=== PATIENT | male | born 1955 | race African-American/Black ===

== ENCOUNTER 2017-09-27 11:58 | Emergency (ER) | payer OTHER, MEDICAID ==
[~2017-09-27] VITALS: Ht 185.4 cm; Wt 93.4 kg
[2017-09-27 12:19] VITALS: BP 154/109
[2017-09-27] MEDS ORDERED: TESSALON PERLE100 MG ORAL (12:40)
--- NOTE | 2017-09-27 12:41 | Emergency Room Report ---
History of Present Illness General Chief Complaint: Upper Respiratory Illness Source: Patient Present Illness HPI 62-year-old male with pmhx pretension, diabetes, HIV positive on treatment, last CD4 count was normal with undetectable viral load for many years, p/w cough for 3 weeks. Pt states cough is productive, with clear non bloody sputum. Denies fever chills sob or chest pain. +runny nose no myalgias. Patient states at work there is some unwitnessed similar cough as well. no recent travel. Patient does not smoke. Allergies: Coded Allergies: SULFA (SULFONAMIDE ANTIBIOTICS) (Verified Allergy, Unknown, 09/27/17) Patient History Past Medical History: see triage record Past Surgical History: none Pertinent Family History: none Reviewed Nursing Documentation: PMH: Agreed, PSxH: Agreed Nursing Documentation-PMH Past Medical History: No History, Except For Hx Hypertension: Yes Review of Systems All Other Systems: negative except mentioned in HPI Physical Exam Vital Signs Date Time Temp Pulse Resp B/P (MAP) Pulse Ox O2 Delivery O2 Flow Rate FiO2 09/27/17 12:19 98.6 92 18 154/109 100 Room Air Sp02 EP Interpretation: reviewed, normal General Appearance: normal inspection, well appearing, no apparent distress, alert, GCS 15, non-toxic Head: normocephalic, atraumatic Eyes: bilateral eye normal inspection, bilateral eye PERRL, bilateral eye EOMI ENT: normal ENT inspection, normal pharynx, normal voice, moist mucus membranes Neck: normal inspection, full range of motion, supple Respiratory: normal inspection, lungs clear, normal breath sounds, no respiratory distress, no retraction, no wheezing, speaking full sentences, chest symmetrical Cardiovascular #1: normal inspection, regular rate, rhythm, no edema, normal capillary refill Cardiovascular #2: 2+ radial (R), 2+ radial (L) Gastrointestinal: normal inspection, non tender, soft, non-distended, no guarding Genitourinary: no CVA tenderness Musculoskeletal: normal inspection, back normal, normal range of motion, non- tender Neurologic: normal inspection, alert, oriented x3, responsive, motor strength/ tone normal, sensory intact, normal gait, speech normal Psychiatric: normal inspection, judgement/insight normal, memory normal Skin: normal inspection, normal color, no rash, warm/dry, well hydrated, normal turgor Medical Decision Making Diagnostic Impression: Primary Impression: Bronchitis ER Course 62-year-old male with cough for 3 weeks DDX: Acute bronchitis versus viral URI versus pneumonia Plan: CXR ER course: Patient remains nontoxic, not in resp distress. CXR obtained - no acute infiltrate Disposition: Patient is to be discharged home with a prescription of Tessalon Perles Strict precautions discussed with patient on when to return to the emergency room including hemoptysis, high fevers, chills, SOB, chest pain which may indicate severe illness. Patient is to follow up with their primary care doctor within 5 days. Patient agrees with plan. Please note that this Emergency Department Report was dictated using [employer] cleaner technology software, occasionally this can lead to erroneous entry secondary to interpretation by the dictation equipment Chest X-ray CXR: Ordered: Yes 1 view Indication: Cough EP interpretation: Yes Interpretation: No consolidation, no effusion, no PTX, no acute cardiopulmonary disease Impression: No acute disease Electronically signed by Isabell Sandoval MD Last Vital Signs Date Time Temp Pulse Resp B/P (MAP) Pulse Ox O2 Delivery O2 Flow Rate FiO2 09/27/17 12:19 98.6 92 18 154/109 100 Room Air Disposition: HOME, SELF-CARE Condition: Stable Scripts Benzonatate* (TESSALON PERLE*) 100 Mg Capsule 100 MG ORAL THREE TIMES A DAY for 7 Days, #21 PERLE 0 Refills Prov: Isabell Sandoval M.D. 09/27/17 Patient Instructions: Acute Bronchitis, [id number] Isabell Sandoval M.D. Sep 27, 2017 12:41
[2017-09-27 12:50] VITALS: BP 135/98
--- NOTE | 2017-09-27 16:27 | Diagnostic Imaging Report ---
Indication: COUGH Technique: One view of the chest Comparison: none Findings: No acute infiltrates, effusions, or congestion. Tortuous calcified aorta. Normal heart size. Upper mediastinum unremarkable. Impression: No acute process.
== END 2017-09-27 14:52 | disposition home or self-care (01) ==
LOC: EMR 12:50
DX: J40 Bronchitis, not specified as acute or chronic (principal); I10 Essential (primary) hypertension; Z88.2 Allergy status to sulfonamides
CPT/HCPCS: 71010; 99283

== ENCOUNTER 2018-04-02 17:27 | Emergency (ER) | payer MEDICAID, OTHER ==
[~2018-04-02] VITALS: Ht 185.4 cm; Wt 99.8 kg
[~2018-04-02 17:27] MED LIST: TESSALON PERLE100 MG ORAL
--- NOTE | 2018-04-02 18:12 | Emergency Room Report ---
History of Present Illness General Chief Complaint: Upper Respiratory Illness Present Illness HPI 62-year-old male presents to the emergency department complaining of dry persistent cough, 7 out of 10 in severity generalized bodyaches, sore throat, nasal congestion 3 days. Patient reports many of his coworkers have been experiencing similar symptoms. Patient reports low-grade fevers at home. He also states that he has phlegm in his throat that he is unable to clear. He denies history of smoking, asthma/COPD. He states that he is otherwise healthy with no significant past medical history. He denies neck pain or stiffness, reports mild dull progressive headache. Denies nausea, vomiting, dizziness, chest pain, dyspnea. Denies swelling of the lower extremities. Allergies: Coded Allergies: SULFA (SULFONAMIDE ANTIBIOTICS) (Verified Allergy, Unknown, 09/27/17) Patient History Past Medical History: see triage record Past Surgical History: none Pertinent Family History: none Reviewed Nursing Documentation: PMH: Agreed; PSxH: Agreed Nursing Documentation-PMH Hx Hypertension: Yes Review of Systems All Other Systems: negative except mentioned in HPI Physical Exam Vital Signs Date Time Temp Pulse Resp B/P (MAP) Pulse Ox O2 Delivery O2 Flow Rate FiO2 04/02/18 17:39 100.0 85 20 141/84 97 Room Air 100.0 Sp02 EP Interpretation: reviewed, normal General Appearance: no apparent distress, alert, GCS 15, non-toxic Head: normocephalic, atraumatic Eyes: bilateral eye normal inspection, bilateral eye PERRL ENT: hearing grossly normal, normal voice, TMs + canals normal, uvula midline, nasal congestion, other - no exudates Neck: full range of motion, no meningismus Respiratory: lungs clear, normal breath sounds, no rhonchi, no accessory muscle use, no wheezing, speaking full sentences Cardiovascular #1: regular rate, rhythm, no edema, normal capillary refill Musculoskeletal: back normal, gait/station normal, normal range of motion, non- tender Neurologic: alert, oriented x3, responsive, motor strength/tone normal, sensory intact, normal gait, speech normal, grossly normal Psychiatric: judgement/insight normal Skin: normal color, no rash, warm/dry, well hydrated Medical Decision Making PA Attestation Dr. fenton is my supervising Physician whom patient management has been discussed with. Diagnostic Impression: Primary Impression: Bronchitis Additional Impression: Viral upper respiratory tract infection with cough ER Course 62-year-old male presents to the emergency department complaining of dry persistent cough, 7 out of 10 in severity generalized bodyaches, sore throat, nasal congestion 3 days. Patient reports many of his coworkers have been experiencing similar symptoms. Patient reports low-grade fevers at home. He also states that he has phlegm in his throat that he is unable to clear. He denies history of smoking, asthma/COPD. He states that he is otherwise healthy with no significant past medical history. He denies neck pain or stiffness, reports mild dull progressive headache. Denies nausea, vomiting, dizziness, chest pain, dyspnea. Denies swelling of the lower extremities. Ddx considered but are not limited to URI, pneumonia, PE, strep pharyngitis, meningitis. Vital signs: Pt.is afebrile VS are WNL H&PE are most consistent with bronchitis ORDERS: none required at this time, the diagnosis is clinical ED INTERVENTIONS: PROMETHAZINE COUGH SYRUP PO & NAPROXEN DISCHARGE: At this time pt. is stable for d/c to home. Will provide printed patient care instructions, and any necessary prescriptions. Care plan and follow up instructions have been discussed with the patient prior to discharge. Last Vital Signs Date Time Temp Pulse Resp B/P (MAP) Pulse Ox O2 Delivery O2 Flow Rate FiO2 04/02/18 18:02 85 20 Room Air 04/02/18 17:39 100.0 141/84 97 100.0 Disposition: HOME, SELF-CARE Condition: Stable Scripts Naproxen* (NAPROXEN*) 375 Mg Tablet.dr 375 MG ORAL TWICE A DAY for 4 Days, #8 TAB Prov: Maryann Irizarry P.A. 04/02/18 Guaifenesin (Guaifenesin) 1,200 Mg Tab.er.12h 1200 MG PO Q12HR, #20 TAB Prov: Maryann Irizarry P.A. 04/02/18 Benzonatate* (TESSALON PERLE*) 100 Mg Capsule 100 MG ORAL THREE TIMES A DAY, #20 PERLE Prov: Maryann Irizarry P.A. 04/02/18 Codeine/Promethazine Hcl* (PROMETHAZINE-CODEINE SYRUP*) 118 Ml Syrup 5 ML ORAL Q6H PRN for For Cough, #120 ML 0 Refills Prov: Maryann Irizarry 04/02/18 Referrals: NON PHYSICIAN (PCP) Additional Instructions: Take medications as directed. Follow up with a Primary Care Provider in 3-5 days, even if your symptoms have resolved. --Please review list of primary care clinics, if you do not already have a primary care provider Return sooner to ED if new symptoms occur, or current symptoms become worse. Do not drink alcohol, drive, or operate heavy machinery while taking Cough Syrup as this may cause drowsiness. - Please note that this Emergency Department Report was dictated using [employer] technology software, occasionally this can lead to erroneous entry secondary to interpretation by the dictation equipment. Maryann Irizarry Apr 02, 2018 18:12
[2018-04-02] MEDS ORDERED: NAPROXEN375 M2 ORAL (18:23)
[2018-04-02] MEDS ORDERED: TESSALON PERLE100 MG ORAL (18:23)
[2018-04-02] MEDS ORDERED: PROMETHAZINE-C118 M1 ORAL (18:23)
[2018-04-02] MEDS ORDERED: GUAIFENESIN1200 MG PO (18:23)
[2018-04-02 18:34] VITALS: BP 141/84
[2018-04-02] MEDS ORDERED: Promethazine Plain 6.25mg/5ml ORAL ONE (18:45)
[2018-04-02] MEDS ORDERED: Naproxen 500mg tab ORAL ONE (18:45)
== END 2018-04-02 19:01 | disposition home or self-care (01) ==
LOC: EMR 18:03
DX: J40 Bronchitis, not specified as acute or chronic (principal); J06.9 Acute upper respiratory infection, unspecified; B34.9 Viral infection, unspecified; I10 Essential (primary) hypertension; Z88.2 Allergy status to sulfonamides
CPT/HCPCS: 99284

== ENCOUNTER 2018-07-19 12:31 | Emergency (ER) | payer OTHER ==
[~2018-07-19] VITALS: Ht 188 cm; Wt 113.4 kg
[~2018-07-19 12:31] MED LIST changes: +GUAIFENESIN1200 MG PO; +NAPROXEN375 M2 ORAL; +PROMETHAZINE-C118 M1 ORAL
[2018-07-19] MEDS ORDERED: TIVICAY50 MG ORAL (12:42)
[2018-07-19] MEDS ORDERED: Ketorolac 60mg Inj IM ONE (13:15)
--- NOTE | 2018-07-19 14:22 | Emergency Room Report ---
History of Present Illness General Chief Complaint: Upper Respiratory Illness Source: Patient, Medical Record Present Illness HPI This patient states that he just returned from a trip to [facility]. He states that over the past 2 days he has had cough and sore throat that has been worsening. He does have a history of HIV. However, he states that he is undetectable and well controlled and on antiretroviral therapy. He denies fever or chills. He denies nausea or vomiting. He has no other complaints. Allergies: Coded Allergies: SULFA (SULFONAMIDE ANTIBIOTICS) (Verified Allergy, Unknown, 09/27/17) Patient History Past Medical History: see triage record, HIV Social History: Reports: alcohol use; Denies: smoking, drug use Reviewed Nursing Documentation: PMH: Agreed; PSxH: Agreed Nursing Documentation-PMH Past Medical History: No History, Except For Hx Hypertension: Yes Review of Systems All Other Systems: negative except mentioned in HPI Physical Exam Vital Signs Date Time Temp Pulse Resp B/P (MAP) Pulse Ox O2 Delivery O2 Flow Rate FiO2 07/19/18 12:39 98.9 81 18 151/96 97 Room Air 99.0 Sp02 EP Interpretation: reviewed, normal General Appearance: no apparent distress, alert, GCS 15, non-toxic Head: normocephalic, atraumatic Eyes: bilateral eye normal inspection, bilateral eye PERRL ENT: hearing grossly normal, normal pharynx, no angioedema, normal voice Neck: full range of motion, supple/symm/no masses Respiratory: chest non-tender, lungs clear, normal breath sounds, no respiratory distress, no retraction, no accessory muscle use, speaking full sentences Cardiovascular #1: regular rate, rhythm, no edema Gastrointestinal: normal bowel sounds, non tender, soft, non-distended, no guarding, no rebound Rectal: deferred Musculoskeletal: back normal, gait/station normal, normal range of motion, non- tender Neurologic: alert, oriented x3, responsive, motor strength/tone normal, sensory intact, speech normal Psychiatric: judgement/insight normal, memory normal, mood/affect normal, no suicidal/homicidal ideation Skin: normal color, no rash, warm/dry, well hydrated Medical Decision Making Diagnostic Impression: Primary Impression: Upper respiratory infection ER Course This patient has a clinical presentation with upper respiratory tract infection. The evaluation was very reassuring with a normal lung exam, no respiratory distress, normal pulse oximetry. The patient does have a history of HIV and states that he usually needs antibiotics. Given that he is technically immunocompromise, I will go ahead and treat him with a course of antibiotics. No emergency medical condition was identified. Patient is given close return precautions and follow-up instructions. Chest X-Ray Diagnostic Results Chest X-Ray Diagnostic Results : Chest X-Ray Ordered: Yes # of Views/Limited/Complete: 1 View Indication: Other - cough EP Interpretation: Yes Interpretation: no consolidation, no effusion, no pneumothorax, no acute cardiopulmonary disease Impression: No acute disease Electronically Signed by: Negrita Last Vital Signs Date Time Temp Pulse Resp B/P (MAP) Pulse Ox O2 Delivery O2 Flow Rate FiO2 07/19/18 12:39 98.9 81 18 151/96 97 Room Air 99.0 Status: improved Disposition: HOME, SELF-CARE Condition: Improved Referrals: NON PHYSICIAN (PCP) Patient Instructions: Upper Respiratory Infection, Adult Aliyah Treadwell DO Jul 19, 2018 14:22
[2018-07-19] MEDS ORDERED: GUAIFENESIN-CO118 M1 ORAL (14:24)
[2018-07-19] MEDS ORDERED: ZITHROMAX250 MG ORAL (14:24)
[2018-07-19 14:48] VITALS: BP 151/96
[2018-07-19 14:50] VITALS: BP 151/96
--- NOTE | 2018-07-19 17:56 | Diagnostic Imaging Report ---
Indication: Cough Technique: One view of the chest Comparison: 09/27/2017 Findings: Lungs and pleural spaces are clear. Heart size is normal . No significant change Impression: No acute process
== END 2018-07-19 14:53 | disposition home or self-care (01) ==
LOC: EMR 13:17
DX: J06.9 Acute upper respiratory infection, unspecified (principal); J02.9 Acute pharyngitis, unspecified; I10 Essential (primary) hypertension; Z21 Asymptomatic human immunodeficiency virus [HIV] infection status; Z88.2 Allergy status to sulfonamides
CPT/HCPCS: 71045; 96372; 99283

== ENCOUNTER 2019-12-10 09:21 | Emergency (ER) | payer OTHER ==
[~2019-12-10] VITALS: Ht 185.4 cm; Wt 97.5 kg
[~2019-12-10 09:21] MED LIST changes: +GUAIFENESIN-CO118 M1 ORAL; +TIVICAY50 MG ORAL; +ZITHROMAX250 MG ORAL
[2019-12-10 09:33] VITALS: BP 146/95
[2019-12-10] MEDS ORDERED: METFORMIN HCL1000 M1 ORAL (09:39)
[2019-12-10] MEDS ORDERED: ATORVASTATIN CA20 MG ORAL (09:39)
[2019-12-10] MEDS ORDERED: LOSARTAN-HCTZ1 EAC2 ORAL (09:39)
--- NOTE | 2019-12-10 09:46 | NUR ---
ED Nurse Note: Patient presents to ER due to sore throat, productive cough with clear phlegm since yesterday. Reports no fever, chills or N/V/D or rash. Patient sitting in chair using cellphone without facial grimacing or guarding. Regular, unlabored breathing noted.
[2019-12-10] MEDS ORDERED: TESSALON PERLE100 MG ORAL (10:06)
--- NOTE | 2019-12-10 10:12 | Emergency Room Report ---
History of Present Illness General Chief Complaint: Upper Respiratory Illness Present Illness HPI Patient is a 64-year-old male who presents after increased cough and congestion. Onset of symptoms last night. Reports having some sore throat. Denies any fever. Denies any had weakness. Minimal headache as well as some upper respiratory symptoms. Prior history of HIV but is well controlled with medications. Reports having undetectable viral load as well as normal CD4 counts. Denies any weakness or dizziness. Increased nonproductive cough. Allergies: Coded Allergies: SULFA (SULFONAMIDE ANTIBIOTICS) (Verified Allergy, Unknown, 09/27/17) Patient History Past Medical History: see triage record Reviewed Nursing Documentation: PMH: Agreed; PSxH: Agreed Nursing Documentation-PMH Hx Hypertension: Yes Hx Diabetes: Yes Review of Systems All Other Systems: negative except mentioned in HPI Physical Exam Vital Signs Date Time Temp Pulse Resp B/P (MAP) Pulse Ox O2 Delivery O2 Flow Rate FiO2 12/10/19 09:33 99.1 16 146/95 97 Room Air 12/10/19 09:33 76 General Appearance: well appearing, no apparent distress, alert, GCS 15 Head: normocephalic, atraumatic ENT: hearing grossly normal, normal voice Neck: full range of motion, supple Respiratory: lungs clear, normal breath sounds, no respiratory distress, speaking full sentences Cardiovascular #1: normal inspection Gastrointestinal: normal inspection, normal bowel sounds, non tender, soft Musculoskeletal: normal inspection Neurologic: alert, motor strength/tone normal, cobbler apprentice III-XII nml as tested, normal gait Psychiatric: mood/affect normal Skin: no rash Medical Decision Making Diagnostic Impression: Primary Impression: Viral upper respiratory infection ER Course Patient presented for cough. Differential diagnosis include was not limited to pneumonia, viral respiratory infection, influenza among others. Patient has a benign exam and does not appear to require any imaging or laboratory testing at this time. Patient appears to have a viral upper respiratory infection. He appears to be stable for close outpatient follow-up. He was advised to return if he had any increased difficulty breathing fever or other concerns. He was given prescription for Tessalon to assist with cough. He is advised to continue [id number] medications. Advised to return if worse. This medical record is generated with [employer] jewelry sales associate software. There may be some jewelry sales associate discrepancies related to use of this software Last Vital Signs Date Time Temp Pulse Resp B/P (MAP) Pulse Ox O2 Delivery O2 Flow Rate FiO2 2/9/20 09:45 72 16 Room Air 12/10/19 09:33 99.1 146/95 (112) 97 Status: improved Disposition: HOME, SELF-CARE Condition: Stable Scripts Benzonatate* (TESSALON PERLTrevor*) 100 Mg Capsule 100 MG ORAL THREE TIMES A DAY, #60 PERLE Prov: Christopher Brown MD 12/10/19 Referrals: NON PHYSICIAN (PCP) Patient Instructions: Upper Respiratory Infection, Adult Christopher Brown MD Dec 10, 2019 10:12
--- NOTE | 2019-12-10 10:16 | NUR ---
ED Nurse Note: Patient is being discharged from medical care. D/C instruction and prescription given. All questions were answered. Patient ambulating out with steady gait.
== END 2019-12-10 10:15 | disposition home or self-care (01) ==
LOC: EMR 09:56
DX: J06.9 Acute upper respiratory infection, unspecified (principal); E11.9 Type 2 diabetes mellitus without complications; I10 Essential (primary) hypertension; Z88.2 Allergy status to sulfonamides
CPT/HCPCS: 99282